=== PATIENT | female | born 1990 ===

== ENCOUNTER → 2016-06-27 | Outpatient (CLI) | payer OTHER ==
--- NOTE | 2016-06-27 17:50 | Diagnostic Imaging Report ---
INDICATION: Anatomic survey. EXAMINATION: Multiple real-time grayscale images were obtained through the . COMPARISON: None. FINDINGS: A single fetus is identified currently in cephalic presentation. The placenta is anterior. There is no previa. Cervical length is within normal limits. An approximately 3 x 3 x 5 cm hypoechoic area without mass effect is located in the subamniotic placenta. anatomic survey was negative. BIOMETRICS: BPD 4.75 cm - 20 weeks 3 days Head circumference 17.03 cm - 19 weeks 5 days Abdominal circumference 13.85 cm - 19 weeks 2 days Femur length 3.03 cm - 19 weeks 3 days. Amniotic fluid index - 13 Estimated weight - 289 +/- 42 g. Cardiac rate: 139 bpm IMPRESSION: 1. Single live intrauterine with an average ultrasound age of 19 weeks 5 days +/- 12 days. 2. size is approximately equal to dates. 3. Hypoechoic subamniotic region in the placenta. This might be a large venous sánchez although a prior hemorrhage could produce similar appearance. Followup with ultrasound. Dictated by: Dictated on workstation # [id number]
== END ==
LOC: RAD 14:09
PROVIDERS: ATTEND Family Medicine
DX: Z36 Encounter for antenatal screening of mother (principal)
CPT/HCPCS: 76805